=== PATIENT | male | born 2000 | race Caucasian/White ===

== ENCOUNTER 2018-07-12 20:47 | Emergency (ER) | payer SELFPAY ==
--- NOTE | 2018-07-12 20:54 | ER Report ---
History and Physical Time Seen By MD: 20:48 Hx. of Stated Complaint: PT HAS A LACERATION ON L FOREARM, INTOXICATED HPI/ROS CHIEF COMPLAINT: Senior Care clearance, alcohol intoxication, arm laceration HISTORY OF PRESENT ILLNESS: 17-year-old male brought in by police and EMS combative and agitated. He apparently punched his arm through a window sustaining a laceration to his right arm. He became combative with the paramedics. Police-assisted. He was medicated with Ativan 2 mg IV. He is restrained in handcuffs and leg binders after attempting to kick officers and paramedics. On arrival, patient's refusing care. We did offer him stitches or Steri-Strips on his superficial right arm laceration. Patient's tetanus status is likely up-to-date if he had routine vaccinations from 10-12 years old. Patient denies any other injuries. He should admits to heavy alcohol ingestion at the [employer]. He denies other drugs. REVIEW OF SYSTEMS: Respiratory: No cough, no dyspnea. Cardiovascular: No chest pain, no palpitations. Gastrointestinal: No vomiting, no abdominal pain. Musculoskeletal: No back pain. Allergies: Coded Allergies: amoxicillin (Unverified Allergy, Mild, rash, 10/03/16) penicillin G (Verified Allergy, Mild, 10/03/16) Home Meds No Active Prescriptions or Reported Meds Reviewed Nurses Notes: Yes Old Medical Records Reviewed: Yes Hx Smoking: No Smoking Status: Never Smoker Exposure to Second Hand Smoke?: No Constitutional Vital Sign - Last 24 Hours 07/12/18 20:48 Pulse 114 Resp 18 Pulse Ox 92 O2 Delivery Room Air Physical Exam General Appearance: The patient is alert, has no immediate need for airway protection and no current signs of toxicity. Vital signs stable, afebrile, pulse ox normal, palpation of the head and neck reveals no tenderness or trauma HEENT: Pupils equal and round no injection. Oropharynx without redness or exudate, mucous membranes are moist., Heavy odor of EtOH Respiratory: Chest is non tender, lungs are clear to auscultation. Cardiac: regular rate and rhythm Gastrointestinal: Abdomen is soft and non tender, no masses, bowel sounds normal. Musculoskeletal: Neck: Neck is supple and non tender. Extremities have full range of motion and are non tender. Examination of the forearm on the volar surface. There is a superficial curvilinear laceration that penetrates through the dermis but not into the epidermis. Distal neurovascular function is intact. Skin: No rashes or lesions. DIFFERENTIAL DIAGNOSIS: After history and physical exam differential diagnosis was considered for penitentiary clearance, alcohol intoxication, polysubstance abuse Medical Decision Making ED Course/Re-evaluation ED Course Patient was admitted to an examination room. H&P was done. The differential diagnoses was considered. On clinical examination. Patient has grossly agitated and refusing care. All he wants his ankles removed. However, officers were reluctant to do that since he's been out of control. Patient was offered sutures in his arm, as well as Steri-Strips, but he declined. He was offered a tetanus booster. He declined that as well. Patient was medically cleared for admission to penitentiary. Decision to Disposition Date: Jul 12, 2018 Decision to Disposition Time: 20:53 Depart Departure Latest Vital Signs Vital Signs Date Time Temp Pulse Resp B/P (MAP) Pulse Ox O2 Delivery O2 Flow Rate FiO2 07/12/18 20:48 114 18 92 Room Air Impression: Primary Impression: Medical clearance for incarceration Additional Impressions: Laceration of right forearm Alcohol intoxication Agitation Condition: Improved Disposition: [facility] TO SENIOR CARE/CORRECTIONAL F Referrals: ALFONSO HAYDEN MD (PCP) New Scripts No Active Prescriptions or Reported Meds Patient Instructions: Acute Wound Care (ED), Alcohol Intoxication (ED) Additional Instructions: Medically cleared for penitentiary admission Problem Qualifiers Additional Impressions: Laceration of right forearm Encounter type: initial encounter Qualified Codes: S51.811A - Laceration without foreign body of right forearm, initial encounter Alcohol intoxication Complication of substance-induced condition: uncomplicated Qualified Codes: F10.920 - Alcohol use, unspecified with intoxication, uncomplicated LARA CARRERA DO Jul 12, 2018 20:54
== END 2018-07-12 21:05 ==
LOC: EDUNIT# 20:47 → ER 20:49
DX: S51.812A Laceration without foreign body of left forearm, initial encounter (principal); F10.920 Alcohol use, unspecified with intoxication, uncomplicated; R45.1 Restlessness and agitation
CPT/HCPCS: 99281

== ENCOUNTER → 2018-07-12 | Outpatient (CLI) | payer SELFPAY ==
[~2018-07-12] MED LIST: CIPR-344 PO; CLON1 PO; DOCU-416 PO; METH54TA10 PO; OXCA600T30 PO; OXYC-865 PO
== END ==
LOC: AMB 20:22
PROVIDERS: ATTEND Nurse Practitioner
DX: S41.111A Laceration without foreign body of right upper arm, initial encounter (principal); F10.120 Alcohol abuse with intoxication, uncomplicated; W25.XXXA Contact with sharp glass, initial encounter
CPT/HCPCS: A0425; A0429